=== PATIENT | male | born 1960 | race Caucasian/White ===

== ENCOUNTER 2017-07-15 17:40 | Emergency (ER) | payer MEDICAID ==
[~2017-07-15] VITALS: Ht 165.1 cm; Wt 132.0 kg
[2017-07-16] MEDS ORDERED: IBUPROFEN 800MG TABLET PO ONE (06:45)
[2017-07-16 06:50] VITALS: BP 125/77
== END 2017-07-16 07:13 | disposition home or self-care (01) ==
LOC: ER 17:40
DX: S80.812A Abrasion, left lower leg, initial encounter (principal); S80.811A Abrasion, right lower leg, initial encounter; S90.811A Abrasion, right foot, initial encounter; I73.9 Peripheral vascular disease, unspecified; L03.116 Cellulitis of left lower limb; L03.115 Cellulitis of right lower limb; F10.20 Alcohol dependence, uncomplicated; X58.XXXA Exposure to other specified factors, initial encounter; Y93.89 Activity, other specified; Y92.89 Other specified places as the place of occurrence of the external cause; Y99.8 Other external cause status
CPT/HCPCS: 99283